=== PATIENT | female | born 1955 | race African-American/Black ===

== ENCOUNTER 2018-11-04 03:44 | Inpatient (IN) | payer MEDICAID ==
[~2018-11-04] VITALS: Ht 170.2 cm; Wt 98.3 kg
--- NOTE | 2018-11-04 04:22 | NUR ---
PT HERE WITH ABD PAIN THAT STARTED YESTERDAY. PAIN INCREASED TONIGHT TO 10/10 WITH PAIN IN ALL QUADRENTS. PT MEDICATED FOR PAIN AND PLACED ON 3 L O2 TO MAINTAIN SATS. PIV PLACED. PT TO CT.
[2018-11-04] MEDS ORDERED: ONDANSETRON 2MG/ML, 2ML IVPush ONE (04:30)
[2018-11-04] MEDS ORDERED: ONDANSETRON 2MG/ML, 2ML ONE (04:57)
[2018-11-04] MEDS ORDERED: FENTANYL PF 100 MCG/2ML ONE ×2 (04:58→10:03)
[2018-11-04] MEDS ORDERED: FENTANYL PF 100 MCG/2ML IVPush PRN (05:00)
--- NOTE | 2018-11-04 05:07 | NUR ---
PT BACK FROM CT. PT MEDICATED FOR PAIN. VSS. PT HAS NO OTHER NEEDS AT THIS TIME. CALL LIGHT IN REACH
--- NOTE | 2018-11-04 05:15 | NUR ---
LAB AT BEDSIDE
[2018-11-04 05:28] LABS: MEAN CORPUSCULAR HEMOGLOBIN 29.7 pg (27.0-34.8); MEAN CORPUSCULAR HGB CONC 33.2 g/dL (32.4-35.8); MEAN CORPUSCULAR VOLUME 89.3 fL (80-100); MEAN PLATELET VOLUME 7.8 fL (7.4-10.4); PLATELET COUNT 296 x10^3/uL (130-400); RED CELL DISTRIBUTION WIDTH 14.4 % (9.6-15.2)
[2018-11-04 05:38] LABS: ALANINE AMINOTRANSFERASE 19 U/L (12-78); ALBUMIN 3.6 g/dL (3.4-5.0); ANION GAP 8 mmol/L (5-15); CALCIUM 9.2 mg/dL (8.5-10.1); CHLORIDE 106 mmol/L (98-107); CREATININE 0.77 mg/dL (0.55-1.02)
[2018-11-04 05:41] LABS: ALKALINE PHOSPHATASE 88 U/L (45-117); BILIRUBIN,TOTAL 0.8 mg/dL (0.2-1.0); TOTAL PROTEIN 7.6 g/dL (6.4-8.2)
[2018-11-04] MEDS ORDERED: OMNIPAQUE 350 MG/ML, 100ML BOTTLE ONE (05:41)
[2018-11-04 05:52] LABS: BASOPHILS # (AUTO) 0.01 x10^3/uL (0-0.1); BASOPHILS % (AUTO) 0 % (0-1); EOSINOPHILS # (AUTO) 0.02 x10^3/uL (0-0.4); EOSINOPHILS % (AUTO) 0 % (1-7); LYMPHOCYTES # (AUTO) 0.43 x10^3/uL (1-3.4); LYMPHOCYTES % (AUTO) 4 % (22-44); MD SCAN; MONOCYTES % (AUTO) 2 % (2-9); NEUTROPHILS # (AUTO) 11.43 x10^3/uL (1.8-6.8); NEUTROPHILS % (AUTO) 95 % (42-75)
[2018-11-04] MEDS ORDERED: CIPROFLOXACIN/PMX 400MG/200ML 200 ML IV ONE (06:00)
[2018-11-04] MEDS ORDERED: METRONIDAZOLE PMX 500MG/100ML 100 ML IV ONE (06:00)
--- NOTE | 2018-11-04 06:07 | NUR ---
PT TO HAVE BLOOD CULTURES DRAWN AND THEN ABX WILL BE STARTED. PT RESTING. PAIN MEDS HAVE IMPROVED PAIN. MD TO SEE PT.
--- NOTE | 2018-11-04 06:16 | NUR ---
LAB AT BEDSIDE TO DRAW BLOOD CULTURES. PT HAS BEEN NPO SINCE APPROX 1900 LAST NIGHT. VSS. SON AT BEDSIDE. CALL LIGHT IN REACH
[2018-11-04] MEDS ORDERED: METRONIDAZOLE PMX 500MG/100ML 100 ML ONE (06:43)
[2018-11-04] MEDS ORDERED: MORPHINE SULFATE 4 MG/ML, 1ML ONE ×2 (06:44→07:42)
[2018-11-04] MEDS: MORPHINE SULFATE 4 MG/ML, 1ML IVPush PRN ×2 (06:48→07:46)
--- NOTE | 2018-11-04 06:49 | NUR ---
Report from Yanelis LESTER. Pt positioned for comfort in bed and medicated for 10/10 abd pain.
--- NOTE | 2018-11-04 07:11 | NUR ---
Spoke with Dr. Lewis on the phone. Discussed pt condition including fever. Orders received for 650 Tylenol PO q6h PRN fever. Pt level of care to be changed to med tele r/t tachycardia. Discussed with throughput RN.
--- NOTE | 2018-11-04 07:17 | NUR ---
Report called to pre-op RN. They state they will come for the patient now.
--- NOTE | 2018-11-04 07:36 | NUR ---
Pt ambulatory to bathroom and back to bed. POC discussed with pt and her son. Pt verbalizes understanding.
--- NOTE | 2018-11-04 07:46 | NUR ---
Pt medicated for continued 10/10 abd pain per MAR.
[2018-11-04] MEDS ORDERED: MIDAZOLAM 1 MG/ML, 2ML ONE (08:23)
[2018-11-04] MEDS ORDERED: FENTANYL PF 250 MCG/5ML ONE ×2 (08:23→09:19)
[2018-11-04] MEDS ORDERED: SUCCINYLCHOLINE 20 MG/ML, 10ML ONE (08:25)
[2018-11-04] MEDS ORDERED: DEXAMETHASONE 4 MG/ML, 1ML ONE (08:25)
[2018-11-04] MEDS ORDERED: PROPOFOL 10 MG/ML, 20ML ONE (08:25)
[2018-11-04] MEDS ORDERED: ROCURONIUM 10MG/ML,5ML ONE (08:25)
[2018-11-04] MEDS ORDERED: LABETALOL 5MG/ML, 20ML IV PRN (08:30)
[2018-11-04] MEDS ORDERED: PROMETHAZINE 25 MG/ML, 1ML IV PRN (08:30)
[2018-11-04] MEDS ORDERED: DIAZEPAM 5 MG/ML, 2ML IVPush PRN (08:30)
[2018-11-04] MEDS ORDERED: MIDAZOLAM 1 MG/ML, 2ML IV PRN (08:30)
[2018-11-04] MEDS ORDERED: hydrALAzine 20 MG/ML, 1ML IV PRN ×2 (08:30→12:30)
[2018-11-04] MEDS ORDERED: ONDANSETRON ODT 8 MG PO PRN (08:30)
[2018-11-04] MEDS ORDERED: EPHEDRINE 50 MG/ML, 1ML IVPush PRN (08:30)
[2018-11-04] MEDS ORDERED: MORPHINE SULFATE 4 MG/ML, 1ML IVPush PRN (08:30)
[2018-11-04] MEDS ORDERED: PROMETHAZINE 12.5 MG SUPP PR PRN (08:30)
[2018-11-04] MEDS ORDERED: OXYcodone 5 MG/5 ML ORAL.SOL UDC PO PRN (08:30)
[2018-11-04] MEDS ORDERED: FENTANYL PF 100 MCG/2ML IV PRN (08:30)
[2018-11-04] MEDS ORDERED: ACETAMINOPHEN 325 MG TABLET PO PRN ×2 (08:30→13:00)
[2018-11-04] MEDS ORDERED: MEPERIDINE/PF 25MG/0.5ML IVPush PRN (08:30)
[2018-11-04] MEDS ORDERED: ONDANSETRON 2MG/ML, 2ML IV PRN (08:30)
[2018-11-04] MEDS ORDERED: ALBUTEROL SULFATE 2.5 MG/3 ML NPPB PRN (08:30)
[2018-11-04] MEDS ORDERED: SUGAMMADEX 200 MG/2 ML IVPush ONE (09:04)
[2018-11-04] MEDS ORDERED: HYDROmorphone 1 MG/ML, 1ML VIAL ONE (10:03)
[2018-11-04] MEDS ORDERED: hydrALAzine 20 MG/ML, 1ML ONE (10:17)
[2018-11-04] MEDS: HYDROmorphone 2 MG/ML, 1ML IVPush PRN ×2 (11:05→11:14)
[2018-11-04] MEDS ORDERED: DIPHENHYDRAMINE 50 MG/ML, 1ML IV PRN (12:30)
[2018-11-04] MEDS ORDERED: [UNRECOGNIZED DRUG - OTHER] MC SCH (12:30)
[2018-11-04] MEDS: KETOROLAC 30 MG/1 ML IV PRN (12:43)
[2018-11-04] MEDS ORDERED: SODIUM CHLORIDE 0.9% 1,000 ML IV SCH (12:43)
[2018-11-04] MEDS ORDERED: PROMETHAZINE 25 MG/ML, 1ML IM PRN (13:00)
[2018-11-04] MEDS ORDERED: hydrALAzine 20 MG/ML, 1ML IVPush PRN (13:00)
[2018-11-04] MEDS ORDERED: ONDANSETRON 2MG/ML, 2ML IVPush PRN (13:00)
[2018-11-04] MEDS ORDERED: LABETALOL 5 MG/ML SYRINGE IVPush PRN (13:00)
[2018-11-04] MEDS ORDERED: CEFTRIAXONE PMX 1GM/50ML 50 ML IV SCH ×2 (13:00→13:30)
[2018-11-04] MEDS: PIPERACILLIN/TAZO/PMX 3.375GM 50 ML IV SCH ×2 (13:23→20:49)
[2018-11-04 13:27] VITALS: BP 118/74
[2018-11-04] MEDS: SODIUM CHLORIDE 0.9% 1,000 ML IV SCH ×5 (13:27→23:42)
[2018-11-04 13:58] LABS: HEMOGLOBIN A1C 6.1 % (4.2-6.3)
[2018-11-04] MEDS: HEPARIN 5,000 UNITS/ML, 1ML SQ SCH ×2 (14:38→22:17)
[2018-11-04] MEDS: morphine SULFATE 10 MG/ML, 1ML IV PRN ×2 (14:39→21:00)
[2018-11-04] MEDS: METRONIDAZOLE PMX 500MG/100ML 100 ML IV SCH ×2 (16:03→20:52)
[2018-11-04] MEDS: LACTATED RINGERS 1,000 ML IV SCH (18:00)
[2018-11-04 18:11] LABS: CULTURE INDICATED? NO; MICROSCOPIC AUTO
[2018-11-04] MEDS: ACETAMINOPHEN 325 MG TABLET PO PRN (19:43)
[2018-11-04] MEDS: HYDROcodone/APAP 5/325 TABLET PO PRN (19:57)
[2018-11-04 20:07] VITALS: BP 119/62
[2018-11-04] MEDS: INSULIN REGULAR 100 UNITS/ML, 3ML VIAL SQ-INSULIN SCH (22:17)
[2018-11-04 23:59] VITALS: BP 110/64
[2018-11-05] MEDS: morphine SULFATE 10 MG/ML, 1ML IV PRN ×2 (00:14→03:40)
[2018-11-05] MEDS: KETOROLAC 30 MG/1 ML IV PRN ×2 (01:00→20:04)
[2018-11-05 02:01] VITALS: BP 122/72
[2018-11-05] MEDS: PIPERACILLIN/TAZO/PMX 3.375GM 50 ML IV SCH ×4 (03:32→20:04)
[2018-11-05] MEDS: METRONIDAZOLE PMX 500MG/100ML 100 ML IV SCH (03:36)
[2018-11-05] MEDS: HEPARIN 5,000 UNITS/ML, 1ML SQ SCH (05:36)
[2018-11-05] MEDS: ENOXAPARIN 40 MG/0.4 ML SQ SCH (05:37)
[2018-11-05] MEDS: HYDROcodone/APAP 5/325 TABLET PO PRN (05:42)
[2018-11-05 06:17] LABS: BASOPHILS % (AUTO) 0 % (0-1); EOSINOPHILS % (AUTO) 0 % (1-7); LYMPHOCYTES # (AUTO) 0.47 x10^3/uL (1-3.4); LYMPHOCYTES % (AUTO) 4 % (22-44); MD NO; MEAN CORPUSCULAR HEMOGLOBIN 30.5 pg (27.0-34.8); MEAN CORPUSCULAR HGB CONC 33.8 g/dL (32.4-35.8); MEAN CORPUSCULAR VOLUME 90.3 fL (80-100); MONOCYTES # (AUTO) 0.28 x10^3/uL (0.2-0.8); MONOCYTES % (AUTO) 2 % (2-9); NEUTROPHILS % (AUTO) 94 % (42-75); PLATELET COUNT 261 x10^3/uL (130-400); RED BLOOD COUNT 3.53 x10^6/uL (3.82-5.3); RED CELL DISTRIBUTION WIDTH 14.4 % (9.6-15.2)
[2018-11-05 06:18] LABS: ALANINE AMINOTRANSFERASE 17 U/L (12-78); ALBUMIN 2.8 g/dL (3.4-5.0); ANION GAP 7 mmol/L (5-15); CALCIUM 7.9 mg/dL (8.5-10.1); CHLORIDE 113 mmol/L (98-107); CREATININE 0.96 mg/dL (0.55-1.02)
[2018-11-05 06:20] LABS: ALKALINE PHOSPHATASE 59 U/L (45-117); BILIRUBIN,TOTAL 0.8 mg/dL (0.2-1.0); TOTAL PROTEIN 6.6 g/dL (6.4-8.2)
[2018-11-05 07:35] VITALS: BP 93/54
[2018-11-05] MEDS: INSULIN REGULAR 100 UNITS/ML, 3ML VIAL SQ-INSULIN SCH (08:21)
[2018-11-05] MEDS: LACTATED RINGERS 1,000 ML IV SCH (09:37)
[2018-11-05] MEDS: morphine SULFATE 10 MG/ML, 1ML IVPush PRN ×3 (09:37→17:03)
[2018-11-05 12:47] VITALS: BP 118/81
[2018-11-05 18:40] VITALS: BP 137/77
[2018-11-05] MEDS: ONDANSETRON 2MG/ML, 2ML IV PRN (20:03)
[2018-11-06 00:10] VITALS: BP 138/77
[2018-11-06] MEDS: LACTATED RINGERS 1,000 ML IV SCH ×2 (00:43→18:30)
[2018-11-06] MEDS: morphine SULFATE 10 MG/ML, 1ML IVPush PRN ×6 (00:44→20:36)
[2018-11-06] MEDS: PIPERACILLIN/TAZO/PMX 3.375GM 50 ML IV SCH ×4 (03:25→23:17)
[2018-11-06] MEDS: ENOXAPARIN 40 MG/0.4 ML SQ SCH (05:38)
[2018-11-06 05:56] LABS: BASOPHILS % (AUTO) 0 % (0-1); EOSINOPHILS # (AUTO) 0.01 x10^3/uL (0-0.4); EOSINOPHILS % (AUTO) 0 % (1-7); LYMPHOCYTES % (AUTO) 8 % (22-44); MD NO; MEAN CORPUSCULAR HEMOGLOBIN 30.6 pg (27.0-34.8); MEAN CORPUSCULAR HGB CONC 33.9 g/dL (32.4-35.8); MEAN CORPUSCULAR VOLUME 90.1 fL (80-100); MEAN PLATELET VOLUME 8.1 fL (7.4-10.4); MONOCYTES # (AUTO) 0.31 x10^3/uL (0.2-0.8); MONOCYTES % (AUTO) 3 % (2-9); NEUTROPHILS # (AUTO) 10.79 x10^3/uL (1.8-6.8); NEUTROPHILS % (AUTO) 90 % (42-75); PLATELET COUNT 280 x10^3/uL (130-400); RED BLOOD COUNT 3.35 x10^6/uL (3.82-5.3); RED CELL DISTRIBUTION WIDTH 14.7 % (9.6-15.2)
[2018-11-06 07:24] VITALS: BP 144/70
[2018-11-06] MEDS: ACETAMINOPHEN 325 MG TABLET PO PRN ×2 (11:25→23:17)
[2018-11-06 12:35] VITALS: BP 138/69
[2018-11-06 19:05] VITALS: BP 169/84
[2018-11-07 00:15] VITALS: BP 135/70
[2018-11-07] MEDS: ENOXAPARIN 40 MG/0.4 ML SQ SCH (04:39)
[2018-11-07] MEDS: PIPERACILLIN/TAZO/PMX 3.375GM 50 ML IV SCH ×2 (04:39→12:21)
[2018-11-07] MEDS: HYDROcodone/APAP 5/325 TABLET PO PRN ×2 (04:39→20:38)
[2018-11-07 06:30] LABS: BASOPHILS # (AUTO) 0.02 x10^3/uL (0-0.1); BASOPHILS % (AUTO) 0 % (0-1); EOSINOPHILS # (AUTO) 0.12 x10^3/uL (0-0.4); EOSINOPHILS % (AUTO) 1 % (1-7); LYMPHOCYTES # (AUTO) 0.81 x10^3/uL (1-3.4); LYMPHOCYTES % (AUTO) 7 % (22-44); MD NO; MEAN CORPUSCULAR HEMOGLOBIN 29.4 pg (27.0-34.8); MEAN CORPUSCULAR HGB CONC 32.9 g/dL (32.4-35.8); MEAN CORPUSCULAR VOLUME 89.6 fL (80-100); MONOCYTES # (AUTO) 0.43 x10^3/uL (0.2-0.8); MONOCYTES % (AUTO) 4 % (2-9); NEUTROPHILS # (AUTO) 10.94 x10^3/uL (1.8-6.8); NEUTROPHILS % (AUTO) 89 % (42-75); PLATELET COUNT 322 x10^3/uL (130-400); RED BLOOD COUNT 3.61 x10^6/uL (3.82-5.3); RED CELL DISTRIBUTION WIDTH 14.2 % (9.6-15.2)
[2018-11-07] MEDS ORDERED: BUTALB/APAP/CAFFEINE 50MG/325MG/40MG ONE (08:55)
[2018-11-07] MEDS: BUTALB/APAP/CAFFEINE 50MG/325MG/40MG PO PRN ×2 (09:01→16:53)
[2018-11-07] MEDS ORDERED: OXYcodone/APAP 5/325MG TABLET PO PRN (11:30)
[2018-11-07] MEDS: LACTATED RINGERS 1,000 ML IV SCH (12:21)
[2018-11-07] MEDS: ACETAMINOPHEN 325 MG TABLET PO PRN (13:24)
[2018-11-07] MEDS: OXYcodone/APAP 5/325MG TABLET PO PRN (19:07)
[2018-11-07 19:42] VITALS: BP 169/90
[2018-11-07 20:15] VITALS: BP 174/101
[2018-11-07] MEDS: AMOXICILLIN/CLAV 875-125MG TABLET PO SCH (20:30)
[2018-11-07 22:00] VITALS: BP 167/88
[2018-11-08] MEDS: LACTATED RINGERS 1,000 ML IV SCH ×2 (01:23→13:40)
[2018-11-08 01:24] VITALS: BP 167/71
[2018-11-08] MEDS: ENOXAPARIN 40 MG/0.4 ML SQ SCH (03:26)
[2018-11-08] MEDS: OXYcodone/APAP 5/325MG TABLET PO PRN ×4 (03:26→22:55)
[2018-11-08] MEDS: ONDANSETRON 2MG/ML, 2ML IV PRN (03:28)
[2018-11-08] MEDS: DIPHENHYDRAMINE 25 MG CAPSULE PO PRN ×2 (05:02→22:51)
[2018-11-08 07:11] LABS: ALANINE AMINOTRANSFERASE 12 U/L (12-78); ALBUMIN 2.6 g/dL (3.4-5.0); ANION GAP 6 mmol/L (5-15); CALCIUM 8.3 mg/dL (8.5-10.1); CHLORIDE 110 mmol/L (98-107)
[2018-11-08 07:13] VITALS: BP 173/99
[2018-11-08 07:14] LABS: ALKALINE PHOSPHATASE 64 U/L (45-117); BILIRUBIN,TOTAL 0.6 mg/dL (0.2-1.0); TOTAL PROTEIN 6.7 g/dL (6.4-8.2)
[2018-11-08] MEDS ORDERED: POTASSIUM CHLORIDE 40 MEQ in SODIUM CHLORIDE 0.9% 500 ML IV ONE (08:00)
[2018-11-08 08:42] LABS: MEAN CORPUSCULAR HEMOGLOBIN 29.5 pg (27.0-34.8); MEAN CORPUSCULAR HGB CONC 32.8 g/dL (32.4-35.8); MEAN CORPUSCULAR VOLUME 89.7 fL (80-100); MEAN PLATELET VOLUME 7.7 fL (7.4-10.4); PLATELET COUNT 354 x10^3/uL (130-400); RED BLOOD COUNT 3.58 x10^6/uL (3.82-5.3); RED CELL DISTRIBUTION WIDTH 14.2 % (9.6-15.2)
[2018-11-08 08:47] LABS: BASOPHILS % (AUTO) 0 % (0-1); EOSINOPHILS # (AUTO) 0.26 x10^3/uL (0-0.4); EOSINOPHILS % (AUTO) 2 % (1-7); LYMPHOCYTES # (AUTO) 0.82 x10^3/uL (1-3.4); LYMPHOCYTES % (AUTO) 8 % (22-44); MD SCAN; MONOCYTES # (AUTO) 0.46 x10^3/uL (0.2-0.8); MONOCYTES % (AUTO) 4 % (2-9); NEUTROPHILS # (AUTO) 9.21 x10^3/uL (1.8-6.8); NEUTROPHILS % (AUTO) 86 % (42-75)
[2018-11-08] MEDS: AMOXICILLIN/CLAV 875-125MG TABLET PO SCH ×2 (09:00→21:57)
[2018-11-08] MEDS: BUTALB/APAP/CAFFEINE 50MG/325MG/40MG PO PRN ×2 (09:05→15:23)
[2018-11-08 14:00] VITALS: BP 153/84
[2018-11-08 15:14] LABS: MICROSCOPIC INDICATED
[2018-11-08 15:18] LABS: CULTURE INDICATED? NO
[2018-11-08] MEDS: HYDROcodone/APAP 5/325 TABLET PO PRN (15:22)
[2018-11-08] MEDS ORDERED: POTASSIUM CHLORIDE 20 MEQ TAB.ER.PRT PO SCH (17:00)
[2018-11-08] MEDS: PANTOPROZOLE 40MG TABLET PO SCH (17:33)
[2018-11-08 19:26] VITALS: BP 166/95
[2018-11-09 00:28] VITALS: BP 121/69
[2018-11-09] MEDS: LACTATED RINGERS 1,000 ML IV SCH ×2 (03:00→16:16)
[2018-11-09] MEDS: HYDROcodone/APAP 5/325 TABLET PO PRN (03:47)
[2018-11-09 05:32] LABS: BASOPHILS # (AUTO) 0.04 x10^3/uL (0-0.1); BASOPHILS % (AUTO) 0 % (0-1); EOSINOPHILS # (AUTO) 0.33 x10^3/uL (0-0.4); EOSINOPHILS % (AUTO) 3 % (1-7); LYMPHOCYTES % (AUTO) 8 % (22-44); MD NO; MEAN CORPUSCULAR HEMOGLOBIN 30.1 pg (27.0-34.8); MEAN CORPUSCULAR HGB CONC 33.3 g/dL (32.4-35.8); MEAN CORPUSCULAR VOLUME 90.2 fL (80-100); MEAN PLATELET VOLUME 7.1 fL (7.4-10.4); MONOCYTES # (AUTO) 0.39 x10^3/uL (0.2-0.8); MONOCYTES % (AUTO) 4 % (2-9); NEUTROPHILS # (AUTO) 9.62 x10^3/uL (1.8-6.8); NEUTROPHILS % (AUTO) 85 % (42-75); PLATELET COUNT 417 x10^3/uL (130-400); RED BLOOD COUNT 3.47 x10^6/uL (3.82-5.3); RED CELL DISTRIBUTION WIDTH 14.6 % (9.6-15.2)
[2018-11-09 05:45] LABS: CHLORIDE 109 mmol/L (98-107)
[2018-11-09 05:54] LABS: ALANINE AMINOTRANSFERASE 16 U/L (12-78); ALBUMIN 2.6 g/dL (3.4-5.0); ALKALINE PHOSPHATASE 61 U/L (45-117); ANION GAP 7 mmol/L (5-15); BILIRUBIN,TOTAL 0.7 mg/dL (0.2-1.0); CALCIUM 8.4 mg/dL (8.5-10.1); CREATININE 0.62 mg/dL (0.55-1.02); TOTAL PROTEIN 6.5 g/dL (6.4-8.2)
[2018-11-09] MEDS: ENOXAPARIN 40 MG/0.4 ML SQ SCH (05:54)
[2018-11-09] MEDS: PANTOPROZOLE 40MG TABLET PO SCH ×2 (05:54→21:38)
[2018-11-09 07:46] VITALS: BP 158/102
[2018-11-09] MEDS: OXYcodone/APAP 5/325MG TABLET PO PRN ×4 (08:59→21:37)
[2018-11-09] MEDS: AMOXICILLIN/CLAV 875-125MG TABLET PO SCH ×2 (08:59→21:38)
[2018-11-09] MEDS: POTASSIUM CHLORIDE 20 MEQ TAB.ER.PRT PO SCH ×4 (08:59→21:39)
[2018-11-09] MEDS: PHENAZOPYRIDINE 100 MG TABLET PO PRN ×2 (10:52→21:38)
[2018-11-09] MEDS: BUTALB/APAP/CAFFEINE 50MG/325MG/40MG PO PRN (10:54)
[2018-11-09 20:00] VITALS: BP 137/84
[2018-11-10] MEDS: OXYcodone/APAP 5/325MG TABLET PO PRN ×6 (01:51→22:07)
[2018-11-10] MEDS: LACTATED RINGERS 1,000 ML IV SCH ×2 (05:33→11:49)
[2018-11-10] MEDS: ENOXAPARIN 40 MG/0.4 ML SQ SCH (06:02)
[2018-11-10 07:48] VITALS: BP 158/79
[2018-11-10] MEDS: AMOXICILLIN/CLAV 875-125MG TABLET PO SCH ×2 (08:12→10:28)
[2018-11-10] MEDS: POTASSIUM CHLORIDE 20 MEQ TAB.ER.PRT PO SCH ×4 (08:12→22:07)
[2018-11-10] MEDS: PANTOPROZOLE 40MG TABLET PO SCH ×3 (08:12→21:32)
[2018-11-10 08:29] LABS: BASOPHILS # (AUTO) 0.02 x10^3/uL (0-0.1); BASOPHILS % (AUTO) 0 % (0-1); EOSINOPHILS # (AUTO) 0.22 x10^3/uL (0-0.4); EOSINOPHILS % (AUTO) 2 % (1-7); LYMPHOCYTES # (AUTO) 1.01 x10^3/uL (1-3.4); LYMPHOCYTES % (AUTO) 8 % (22-44); MD NO; MEAN CORPUSCULAR HEMOGLOBIN 29.4 pg (27.0-34.8); MEAN CORPUSCULAR HGB CONC 32.7 g/dL (32.4-35.8); MEAN CORPUSCULAR VOLUME 89.9 fL (80-100); MEAN PLATELET VOLUME 7.5 fL (7.4-10.4); MONOCYTES # (AUTO) 0.47 x10^3/uL (0.2-0.8); MONOCYTES % (AUTO) 4 % (2-9); NEUTROPHILS # (AUTO) 11.61 x10^3/uL (1.8-6.8); NEUTROPHILS % (AUTO) 87 % (42-75); PLATELET COUNT 507 x10^3/uL (130-400); RED BLOOD COUNT 3.86 x10^6/uL (3.82-5.3); RED CELL DISTRIBUTION WIDTH 14.7 % (9.6-15.2)
[2018-11-10 08:40] LABS: CHLORIDE 107 mmol/L (98-107)
[2018-11-10 09:05] LABS: ALANINE AMINOTRANSFERASE 60 U/L (12-78); ALBUMIN 2.9 g/dL (3.4-5.0); ALKALINE PHOSPHATASE 87 U/L (45-117); ANION GAP 7 mmol/L (5-15); BILIRUBIN,TOTAL 0.3 mg/dL (0.2-1.0); CREATININE 0.72 mg/dL (0.55-1.02); TOTAL PROTEIN 7.3 g/dL (6.4-8.2)
[2018-11-10 14:44] VITALS: BP 167/77
[2018-11-10] MEDS: AMPICILLIN/SULBACTAM 1,500 MG in SODIUM CHLORIDE 0.9% 50 ML IV SCH ×2 (15:31→21:32)
[2018-11-10] MEDS ORDERED: OMNIPAQUE 350 MG/ML, 100ML BOTTLE ONE (17:32)
[2018-11-10 21:09] VITALS: BP 148/82
[2018-11-11 01:13] VITALS: BP 144/84
[2018-11-11] MEDS: OXYcodone/APAP 5/325MG TABLET PO PRN ×5 (02:28→22:55)
[2018-11-11] MEDS: AMPICILLIN/SULBACTAM 1,500 MG in SODIUM CHLORIDE 0.9% 50 ML IV SCH ×4 (03:00→20:49)
[2018-11-11 03:14] VITALS: BP 135/86
[2018-11-11 05:23] LABS: BASOPHILS # (AUTO) 0.01 x10^3/uL (0-0.1); BASOPHILS % (AUTO) 0 % (0-1); EOSINOPHILS # (AUTO) 0.24 x10^3/uL (0-0.4); EOSINOPHILS % (AUTO) 2 % (1-7); LYMPHOCYTES # (AUTO) 0.99 x10^3/uL (1-3.4); LYMPHOCYTES % (AUTO) 10 % (22-44); MD NO; MEAN CORPUSCULAR HEMOGLOBIN 29.2 pg (27.0-34.8); MEAN CORPUSCULAR HGB CONC 32.5 g/dL (32.4-35.8); MEAN CORPUSCULAR VOLUME 89.7 fL (80-100); MEAN PLATELET VOLUME 7.2 fL (7.4-10.4); MONOCYTES % (AUTO) 6 % (2-9); NEUTROPHILS # (AUTO) 8.38 x10^3/uL (1.8-6.8); NEUTROPHILS % (AUTO) 82 % (42-75); PLATELET COUNT 471 x10^3/uL (130-400); RED BLOOD COUNT 3.62 x10^6/uL (3.82-5.3); RED CELL DISTRIBUTION WIDTH 14.7 % (9.6-15.2)
[2018-11-11 05:35] LABS: CHLORIDE 110 mmol/L (98-107)
[2018-11-11] MEDS: ENOXAPARIN 40 MG/0.4 ML SQ SCH (05:38)
[2018-11-11] MEDS: BUTALB/APAP/CAFFEINE 50MG/325MG/40MG PO PRN (05:45)
[2018-11-11 05:57] LABS: ALANINE AMINOTRANSFERASE 70 U/L (12-78); ALBUMIN 2.8 g/dL (3.4-5.0); ALKALINE PHOSPHATASE 87 U/L (45-117); ANION GAP 7 mmol/L (5-15); BILIRUBIN,TOTAL 0.3 mg/dL (0.2-1.0); CALCIUM 8.9 mg/dL (8.5-10.1); CREATININE 0.67 mg/dL (0.55-1.02); TOTAL PROTEIN 6.8 g/dL (6.4-8.2)
[2018-11-11 08:04] VITALS: BP 158/79
[2018-11-11] MEDS: LACTATED RINGERS 1,000 ML IV SCH ×2 (08:20→20:50)
[2018-11-11] MEDS: PANTOPROZOLE 40MG TABLET PO SCH ×2 (09:25→20:49)
[2018-11-11] MEDS: POTASSIUM CHLORIDE 20 MEQ TAB.ER.PRT PO SCH (09:25)
[2018-11-11 13:14] VITALS: BP 149/80
[2018-11-11 20:30] VITALS: BP 119/71
[2018-11-12 02:05] VITALS: BP 135/74
[2018-11-12] MEDS: OXYcodone/APAP 5/325MG TABLET PO PRN ×3 (03:20→13:28)
[2018-11-12] MEDS: AMPICILLIN/SULBACTAM 1,500 MG in SODIUM CHLORIDE 0.9% 50 ML IV SCH ×2 (03:20→09:13)
[2018-11-12] MEDS: BUTALB/APAP/CAFFEINE 50MG/325MG/40MG PO PRN ×2 (05:13→09:31)
[2018-11-12] MEDS: ENOXAPARIN 40 MG/0.4 ML SQ SCH (05:13)
[2018-11-12 06:59] VITALS: BP 157/88
[2018-11-12] MEDS: PANTOPROZOLE 40MG TABLET PO SCH (07:46)
[2018-11-12] MEDS: POTASSIUM CHLORIDE 20 MEQ TAB.ER.PRT PO SCH (07:47)
[2018-11-12] MEDS ORDERED: CYCLOBENZAPRINE 10 MG TABLET PO PRN (09:30)
[2018-11-12] MEDS: ONDANSETRON 2MG/ML, 2ML IV PRN (09:30)
[2018-11-12 09:36] LABS: BASOPHILS # (AUTO) 0.02 x10^3/uL (0-0.1); BASOPHILS % (AUTO) 0 % (0-1); EOSINOPHILS # (AUTO) 0.23 x10^3/uL (0-0.4); EOSINOPHILS % (AUTO) 2 % (1-7); LYMPHOCYTES # (AUTO) 1.24 x10^3/uL (1-3.4); LYMPHOCYTES % (AUTO) 12 % (22-44); MD NO; MEAN CORPUSCULAR HEMOGLOBIN 28.9 pg (27.0-34.8); MEAN CORPUSCULAR HGB CONC 32.2 g/dL (32.4-35.8); MEAN CORPUSCULAR VOLUME 89.9 fL (80-100); MEAN PLATELET VOLUME 7.1 fL (7.4-10.4); MONOCYTES # (AUTO) 0.42 x10^3/uL (0.2-0.8); MONOCYTES % (AUTO) 4 % (2-9); NEUTROPHILS # (AUTO) 8.77 x10^3/uL (1.8-6.8); NEUTROPHILS % (AUTO) 82 % (42-75); PLATELET COUNT 541 x10^3/uL (130-400); RED CELL DISTRIBUTION WIDTH 14.9 % (9.6-15.2)
[2018-11-12 11:03] LABS: ALBUMIN 2.9 g/dL (3.4-5.0); ANION GAP 7 mmol/L (5-15); CALCIUM 8.7 mg/dL (8.5-10.1); CHLORIDE 110 mmol/L (98-107)
[2018-11-12 11:06] LABS: ALANINE AMINOTRANSFERASE 71 U/L (12-78); ALKALINE PHOSPHATASE 98 U/L (45-117); BILIRUBIN,TOTAL 0.3 mg/dL (0.2-1.0); CREATININE 0.75 mg/dL (0.55-1.02); TOTAL PROTEIN 7.1 g/dL (6.4-8.2)
[2018-11-12] MEDS ORDERED: PANT40TA5 PO (13:00)
[2018-11-12] MEDS ORDERED: AMOX1TAB64 PO (13:00)
[2018-11-12] MEDS ORDERED: BUTA-177 PO (13:00)
[2018-11-12] MEDS ORDERED: ONDA4TAB7 PO (13:00)
[2018-11-12] MEDS ORDERED: ACET325T14 PO (13:00)
[2018-11-12] MEDS ORDERED: PHEN-582 PO (13:00)
[2018-11-12] MEDS ORDERED: POTA20TA6 PO (13:02)
[2018-11-12] MEDS ORDERED: OXYC1TAB7 PO (13:03)
[2018-11-12 13:14] VITALS: BP 131/82
== END 2018-11-12 14:48 | disposition home or self-care (01) | DRG 853 ==
LOC: ED 06:05 → EDIP 06:23 → 5SO 11:31 → 4WST 23:47 → 4NOR 11-11 03:14 → DCLOUNGE 11-12 14:30
PROVIDERS: ADMIT Internal Medicine; ATTEND Internal Medicine
PROC: 3E0T3BZ Introduction of Anesthetic Agent into Peripheral Nerves and Plexi, Percutaneous Approach (ICD-10-PCS; 2018-11-04)
PROC: 0DBM0ZZ Excision of Descending Colon, Open Approach (ICD-10-PCS; principal; 2018-11-04 08:45)
DX: A41.9 Sepsis, unspecified organism (principal); K65.9 Peritonitis, unspecified; K57.20 Diverticulitis of large intestine with perforation and abscess without bleeding; J98.11 Atelectasis; E66.9 Obesity, unspecified; D25.9 Leiomyoma of uterus, unspecified; E78.5 Hyperlipidemia, unspecified; F17.210 Nicotine dependence, cigarettes, uncomplicated; F39 Unspecified mood [affective] disorder; N64.89 Other specified disorders of breast; Z86.73 Personal history of transient ischemic attack (TIA), and cerebral infarction without residual deficits; Z90.49 Acquired absence of other specified parts of digestive tract; Z68.33 Body mass index [BMI] 33.0-33.9, adult
CPT/HCPCS: 36415; 71275; 74175; 74177; 76770; 80053; 81001; 82962; 83036; 83605; 83690; 85025; 87040; 88307; 93005; 96374; 96375; 99285; G0378; J0696; J1100; J1170; J1644; J1650; J1815; J1885; J2250; J2405; J2543; J2704; J3010; J3480; Q9967; J0295; J0330; J1200; J2270; J7030; J7040; J7120; Q0163

== ENCOUNTER 2020-04-13 08:09 | Emergency (ER) | payer MEDICARE, MEDICAID ==
[~2020-04-13] VITALS: Ht 170.2 cm; Wt 99.3 kg
[~2020-04-13 08:09] MED LIST: ACET325T14 PO; AMOX1TAB64 PO; BUTA-177 PO; ONDA4TAB7 PO; OXYC1TAB7 PO; PANT40TA6 PO; PHEN-582 PO; POTA20TA6 PO
--- NOTE | 2020-04-13 09:03 | NUR ---
BACK HAND: PT TO ROOM FROM LOBBY VIA WHEELCHAIR.
[2020-04-13] MEDS ORDERED: ONDANSETRON 2MG/ML, 2ML ONE (09:25)
[2020-04-13] MEDS ORDERED: MORPHINE SULFATE 4 MG/ML, 1ML ONE (09:25)
[2020-04-13] MEDS ORDERED: SODIUM CHLORIDE FLUSH 10ML SYR IVF ONE (09:30)
[2020-04-13] MEDS ORDERED: MORPHINE SULFATE 4 MG/ML, 1ML IVPush PRN (09:30)
[2020-04-13] MEDS ORDERED: ONDANSETRON 2MG/ML, 2ML IVPush ONE (09:30)
[2020-04-13 10:02] LABS: BASOPHILS # (AUTO) 0.02 x10^3/uL (0-0.1); BASOPHILS % (AUTO) 1 % (0-1); EOSINOPHILS % (AUTO) 0 % (1-7); LYMPHOCYTES # (AUTO) 1.06 x10^3/uL (1-3.4); LYMPHOCYTES % (AUTO) 20 % (22-44); MD NO; MEAN CORPUSCULAR HEMOGLOBIN 29.6 pg (27.0-34.8); MEAN CORPUSCULAR HGB CONC 33.4 g/dL (32.4-35.8); MEAN CORPUSCULAR VOLUME 88.7 fL (80-100); MEAN PLATELET VOLUME 8.3 fL (7.4-10.4); MONOCYTES # (AUTO) 0.33 x10^3/uL (0.2-0.8); MONOCYTES % (AUTO) 6 % (2-9); NEUTROPHILS # (AUTO) 3.91 x10^3/uL (1.8-6.8); NEUTROPHILS % (AUTO) 73 % (42-75); PLATELET COUNT 186 x10^3/uL (130-400); RED BLOOD COUNT 4.71 x10^6/uL (3.82-5.3); RED CELL DISTRIBUTION WIDTH 13.8 % (9.6-15.2)
[2020-04-13 10:18] LABS: ALBUMIN 3.7 g/dL (3.4-5.0); ANION GAP 9 mmol/L (5-15); CALCIUM 8.7 mg/dL (8.5-10.1); CHLORIDE 107 mmol/L (98-107)
[2020-04-13 10:23] LABS: ALANINE AMINOTRANSFERASE 36 U/L (12-78); ALKALINE PHOSPHATASE 98 U/L (45-117); BILIRUBIN,TOTAL 0.4 mg/dL (0.2-1.0); CREATININE 1.04 mg/dL (0.55-1.02); TOTAL PROTEIN 8.1 g/dL (6.4-8.2)
--- NOTE | 2020-04-13 11:22 | NUR ---
ASSIST RN:: CALLED CT TO SEE IF ORDERED SCAN DONE. TECH STATED CT WAS JUST COMPLETED.
[2020-04-13] MEDS ORDERED: OMNIPAQUE 350 MG/ML, 100ML BOTTLE ONE (11:25)
[2020-04-13 12:30] LABS: MICROSCOPIC INDICATED
[2020-04-13 12:35] VITALS: BP 110/38
== END 2020-04-13 13:12 | disposition home or self-care (01) ==
LOC: ED 09:13
DX: N30.00 Acute cystitis without hematuria (principal); K43.2 Incisional hernia without obstruction or gangrene; R11.2 Nausea with vomiting, unspecified; R19.7 Diarrhea, unspecified; F17.200 Nicotine dependence, unspecified, uncomplicated; Z86.73 Personal history of transient ischemic attack (TIA), and cerebral infarction without residual deficits
CPT/HCPCS: 36415; 74177; 80053; 81001; 83690; 85025; 87077; 87086; 96374; 96375; 99285; J2270; J2405; Q9967; 87186

== ENCOUNTER 2020-04-16 06:33 | Observation (INO) | payer MEDICARE, MEDICAID ==
[~2020-04-16] VITALS: Ht 170.2 cm; Wt 98.6 kg
[2020-04-16] MEDS ORDERED: SODIUM CHLORIDE FLUSH 10ML SYR IVF ONE (07:00)
--- NOTE | 2020-04-16 07:00 | NUR ---
REPORT RECEIVED FROM JIMMIE LESTER.
[2020-04-16] MEDS ORDERED: ONDANSETRON 2MG/ML, 2ML ONE (07:10)
[2020-04-16] MEDS ORDERED: MORPHINE SULFATE 4 MG/ML, 1ML ONE (07:10)
[2020-04-16] MEDS ORDERED: ONDANSETRON 2MG/ML, 2ML IVPush ONE (07:30)
[2020-04-16] MEDS ORDERED: CEFTRIAXONE PMX 2GM/50ML 50 ML IV ONE (07:30)
[2020-04-16] MEDS ORDERED: MORPHINE SULFATE 4 MG/ML, 1ML IVPush PRN (07:30)
--- NOTE | 2020-04-16 07:32 | NUR ---
FIRST CONTACT WITH PT. PT C/O ALL QUADRANTS ABD PAIN WITH NAUSEA. PT STATED"I STILL HAVE BLADDER INFECTION AND IT'S NOT GETTING BETTER AT ALL." PT'S AOX4. RESPS EVEN AND UNLABORED. BP/SPO2 MONITORS IN PLACE. CALL LIGHT WITHIN REACH.
--- NOTE | 2020-04-16 07:43 | NUR ---
PT IS NOT ABLE TO PROVIDE URINE SAMPLE AT THIS TIME. PT STATED "I CAN'T GO NOW. ALSO DON'T DO CATH." PA NOTIFIED. URINE CUP IN ROOM. PT AWARE OF UA.
--- NOTE | 2020-04-16 07:44 | NUR ---
PIV EST ON R HAND WITH NO COMPLICATIONS. PT MEDICATED PER EMAR. PT TOLERATED WELL.
[2020-04-16] MEDS ORDERED: CEFTRIAXONE PMX 2GM/50ML 50 ML ONE (07:52)
[2020-04-16 07:54] LABS: MEAN CORPUSCULAR HEMOGLOBIN 29.2 pg (27.0-34.8); MEAN CORPUSCULAR HGB CONC 33.1 g/dL (32.4-35.8); MEAN PLATELET VOLUME 8.2 fL (7.4-10.4); PLATELET COUNT 213 x10^3/uL (130-400); RED BLOOD COUNT 4.55 x10^6/uL (3.82-5.3); RED CELL DISTRIBUTION WIDTH 13.2 % (9.6-15.2)
[2020-04-16 07:57] LABS: ALANINE AMINOTRANSFERASE 23 U/L (12-78); ALBUMIN 3.5 g/dL (3.4-5.0); ANION GAP 9 mmol/L (5-15); CALCIUM 8.7 mg/dL (8.5-10.1); CHLORIDE 107 mmol/L (98-107); CREATININE 0.98 mg/dL (0.55-1.02)
[2020-04-16 07:59] LABS: ALKALINE PHOSPHATASE 76 U/L (45-117); BILIRUBIN,TOTAL 0.4 mg/dL (0.2-1.0); TOTAL PROTEIN 8.2 g/dL (6.4-8.2)
--- NOTE | 2020-04-16 07:59 | NUR ---
abx infusing after blood culture x 2. pt tolerated well. pt's aox4. resps even and unlabored.
[2020-04-16 08:19] LABS: BASOPHILS # (AUTO) 0.02 x10^3/uL (0-0.1); BASOPHILS % (AUTO) 0 % (0-1); EOSINOPHILS % (AUTO) 0 % (1-7); LYMPHOCYTES # (AUTO) 0.64 x10^3/uL (1-3.4); LYMPHOCYTES % (AUTO) 12 % (22-44); MD SCAN; MONOCYTES # (AUTO) 0.21 x10^3/uL (0.2-0.8); MONOCYTES % (AUTO) 4 % (2-9); NEUTROPHILS # (AUTO) 4.49 x10^3/uL (1.8-6.8); NEUTROPHILS % (AUTO) 84 % (42-75)
--- NOTE | 2020-04-16 08:48 | NUR ---
pt amb to br with pt's son at this time. urine cup given.
--- NOTE | 2020-04-16 08:48 | NUR ---
report given to kat acharya.
--- NOTE | 2020-04-16 08:53 | NUR ---
report given to peter acharya.
[2020-04-16 09:19] VITALS: BP 125/73
[2020-04-16 09:28] VITALS: BP 125/73
--- NOTE | 2020-04-16 09:31 | NUR ---
late entry for 0900: pt transferred to floor. pt left with all personal belongings.
[2020-04-16] MEDS ORDERED: ONDANSETRON ODT 4 MG PO PRN (11:30)
[2020-04-16] MEDS ORDERED: ENALAPRILAT 1.25 MG/ML, 2ML IVPush PRN (11:30)
[2020-04-16] MEDS: ENOXAPARIN 40 MG/0.4 ML SQ SCH ×2 (11:30→11:48)
[2020-04-16] MEDS ORDERED: PHENAZOPYRIDINE 200 MG TABLET PO PRN (11:30)
[2020-04-16] MEDS ORDERED: hydrALAzine 20 MG/ML, 1ML IVPush PRN (11:30)
[2020-04-16] MEDS ORDERED: KETOROLAC 30 MG/1 ML IV PRN (11:30)
[2020-04-16] MEDS ORDERED: ACETAMINOPHEN 325 MG TABLET PO PRN (11:30)
[2020-04-16] MEDS ORDERED: ONDANSETRON 2MG/ML, 2ML IVPush PRN (11:30)
[2020-04-16] MEDS: NS + 20MEQ KCL 1,000 ML IV SCH (11:48)
[2020-04-16] MEDS: LACTOBACILLUS CHEW TABLET PO SCH ×3 (11:57→19:44)
[2020-04-16] MEDS ORDERED: NITR100C56 PO (13:27)
[2020-04-16] MEDS ORDERED: HYDR-3237 PO (13:27)
[2020-04-16] MEDS ORDERED: PHEN-418 PO (13:27)
[2020-04-16 14:16] VITALS: BP 114/73
[2020-04-16 18:35] VITALS: BP 121/80
[2020-04-16 18:56] LABS: MICROSCOPIC INDICATED
[2020-04-17 00:31] VITALS: BP 117/71
[2020-04-17] MEDS: NS + 20MEQ KCL 1,000 ML IV SCH ×2 (01:39→08:52)
[2020-04-17 04:36] LABS: BASOPHILS # (AUTO) 0.01 x10^3/uL (0-0.1); BASOPHILS % (AUTO) 0 % (0-1); EOSINOPHILS % (AUTO) 0 % (1-7); LYMPHOCYTES # (AUTO) 0.87 x10^3/uL (1-3.4); LYMPHOCYTES % (AUTO) 18 % (22-44); MD NO; MEAN CORPUSCULAR HEMOGLOBIN 28.9 pg (27.0-34.8); MEAN CORPUSCULAR HGB CONC 32.6 g/dL (32.4-35.8); MEAN PLATELET VOLUME 8.3 fL (7.4-10.4); MONOCYTES % (AUTO) 6 % (2-9); NEUTROPHILS # (AUTO) 3.75 x10^3/uL (1.8-6.8); NEUTROPHILS % (AUTO) 76 % (42-75); PLATELET COUNT 216 x10^3/uL (130-400); RED CELL DISTRIBUTION WIDTH 13.7 % (9.6-15.2)
[2020-04-17 04:50] LABS: ANION GAP 6 mmol/L (5-15); CALCIUM 8.5 mg/dL (8.5-10.1); CHLORIDE 108 mmol/L (98-107)
[2020-04-17 04:51] LABS: CREATININE 1.09 mg/dL (0.55-1.02)
[2020-04-17] MEDS: LACTOBACILLUS CHEW TABLET PO SCH (06:00)
[2020-04-17 07:10] VITALS: BP 109/68
[2020-04-17] MEDS ORDERED: CEFD300C37 PO (08:26)
[2020-04-17] MEDS ORDERED: ACID1TAB7 PO (08:28)
[2020-04-17] MEDS: CEFTRIAXONE PMX 1GM/50ML 50 ML IV SCH ×2 (08:51→09:00)
== END 2020-04-17 10:06 | disposition home or self-care (01) ==
LOC: ED 07:44 → INTOOBSV 08:06 → EDIP 08:06 → 3N 09:12
PROVIDERS: ADMIT Family Medicine; ATTEND Family Medicine
DX: N39.0 Urinary tract infection, site not specified (principal); E78.5 Hyperlipidemia, unspecified; K57.92 Diverticulitis of intestine, part unspecified, without perforation or abscess without bleeding; F17.210 Nicotine dependence, cigarettes, uncomplicated; R19.7 Diarrhea, unspecified; Z86.73 Personal history of transient ischemic attack (TIA), and cerebral infarction without residual deficits
CPT/HCPCS: 36415; 80048; 80053; 81001; 83605; 83690; 83735; 85025; 87040; 87086; 96361; 96365; 96366; 96375; 96376; 99284; G0378; J0696; J1885; J2270; J2405; J3480; J1650